=== PATIENT | male | born 1935 | race Caucasian/White ===

== ENCOUNTER 2016-06-27 20:25 | Emergency (ER) | payer MEDICARE, OTHER ==
[2016-06-27 16:41] LABS: BASOPHILS 0.2 %; BASOPHILS ABSOLUTE 0.02 10/3/uL (0.0-0.16); EOSINOPHILS 0.7 %; EOSINOPHILS ABSOLUTE 0.09 10/3/uL (0.0-0.53); ER CBC TAT 0 Hrs 07 Mins; HEMATOCRIT 41.2 % (40.0-51.0); HEMOGLOBIN 13.7 g/dL (13.6-17.8); IMMATURE GRANULOCYTES 0.3 %; IMMATURE GRANULOCYTES ABSOLUTE 0.04 10/3/uL (0.0-0.11); LYMPHOCYTES 3.7 %; LYMPHOCYTES ABSOLUTE 0.46 10/3/uL (0.67-4.30); MEAN CORPUS HGB CONC 33.3 g/dL (32.0-36.0); MEAN CORPUSCULAR HEMOGLOB 30.3 pg (26.0-34.0); MEAN PLATELET VOLUME 9.9 fL (9.2-13.0); MONOCYTES ABSOLUTE 0.99 10/3/uL (0.21-1.20); NEUTROPHILS 87.1 %; NEUTROPHILS ABSOLUTE 10.84 10/3/uL (2.02-8.40); PLATELET COUNT 244 10/3/uL (150-400); RBC DISTRIBUTION WIDTH 15.3 % (12.0-16.0); RED CELL COUNT 4.52 10/6/uL (4.7-6.1); WHITE BLOOD CELLS 12.4 10/3/uL (4.5-10.5)
[2016-06-27 16:42] LABS: MANUAL DIFF NO %; MEAN CORPUSCULAR VOLUME 91.2 fL (80-100)
[2016-06-27 16:51] LABS: A/G RATIO 0.9 (0.7-1.9); ALBUMIN 3.7 G/DL (3.5-5.0); CALCIUM, SERUM 9.9 MG/DL (8.5-10.4); CHLORIDE, SERUM 103 MMOL/L (96-112); CO2 (CARBON DIOXIDE) 32 MMOL/L (24-34); CREATININE 1.61 MG/DL (0.70-1.30); GFR AFRICAN AMERICAN 46 ML/MIN (>=60); GFR NON AFRICAN AMERICAN 40 ML/MIN (>=60); GLOBULIN 3.9 G/DL (2.5-4.1); GLUCOSE, SERUM 145 MG/DL (60-99); POTASSIUM, SERUM 3.5 MMOL/L (3.5-5.3); SGOT(AST) 20 U/L (5-40); SGPT(ALT) 39 U/L (5-65); SODIUM, SERUM 141 MMOL/L (135-148); TOTAL BILIRUBIN 0.6 MG/DL (0-1.2); TOTAL PROTEIN 7.6 G/DL (6.0-8.5)
[2016-06-27 16:54] LABS: ALKALINE PHOSPHATASE 109 U/L (45-117); BUN (BLOOD UREA NITROGEN) 23 MG/DL (6-23)
[~2016-06-27 20:25] MED LIST: CARDURA XL4 MG PO; DICLOFENAC; EFFEX75 PO; FISH OIL1200 MG PO; GLUCOSAMINE; HCTZ50B PO; LOTREL1 CA4 PO; MULTIVITAMI1 PO; SSKI1 GM/ML OR; TURMERIC; VITAMIN D31000 UNIT PO
[2016-06-29] MEDS ORDERED: T3 PO (14:26)
[2016-06-29] MEDS ORDERED: COREG6 PO (14:30)
[2016-06-29] MEDS ORDERED: CARTIA XT240 MG/24 PO (14:31)
[2016-06-29] MEDS ORDERED: ARICEPT10 PO (14:32)
[2016-06-29] MEDS ORDERED: ELIQUIS 5 MG TAB5 MG PO (14:33)
[2016-06-29] MEDS ORDERED: PEP20 PO (14:34)
[2016-06-29] MEDS ORDERED: L40 PO (14:35)
[2016-06-29] MEDS ORDERED: APRES10B PO (14:35)
[2016-06-29] MEDS ORDERED: DIABETA5 PO (14:35)
[2016-06-29] MEDS ORDERED: NAMENDA10 MG PO (14:36)
[2016-06-29] MEDS ORDERED: COZAAR100 MG PO (14:36)
[2016-06-29] MEDS ORDERED: ZAROX2.5B PO (14:37)
[2016-06-29] MEDS ORDERED: TRENTAL400 PO (14:39)
[2016-06-29] MEDS ORDERED: KLOR-CON M2020 MEQ PO (14:48)
[2016-06-29] MEDS ORDERED: P5 PO (14:51)
[2016-06-29] MEDS ORDERED: FLOMAX4 PO (14:53)
[2016-06-29] MEDS ORDERED: ADVAIR115P INH (14:53)
[2016-06-29] MEDS ORDERED: MAX25 PO (14:54)
[2016-06-29] MEDS ORDERED: ULORIC40 MG PO (14:56)
[2016-06-29] MEDS ORDERED: CENTRUM PO (14:57)
[2016-06-29] MEDS ORDERED: EFFEX75 PO (14:57)
[2016-06-29] MEDS ORDERED: GLUCCHONDR PO (14:58)
[2016-06-29] MEDS ORDERED: THERA TEARS PO (14:59)
[2016-06-29] MEDS ORDERED: PRESERVISION A1 EAC1 PO (14:59)
[2016-06-29] MEDS ORDERED: TUMERIC PO (15:00)
[2016-06-29] MEDS ORDERED: PROAIR HFA INH (15:10)
[2016-06-30] MEDS ORDERED: P20 PO (09:44)
[2016-08-22] MEDS ORDERED: T3 PO (15:31)
[2016-08-22] MEDS ORDERED: COREG6 PO (15:32)
[2016-08-22] MEDS ORDERED: CARTIA XT240 MG/24 PO (15:32)
[2016-08-22] MEDS ORDERED: ARICEPT10 PO (15:32)
[2016-08-22] MEDS ORDERED: L40 PO (15:33)
[2016-08-22] MEDS ORDERED: DIABETA5 PO (15:33)
[2016-08-22] MEDS ORDERED: APRES10B PO (15:33)
[2016-08-22] MEDS ORDERED: ELIQUIS 5 MG TAB5 MG PO (15:33)
[2016-08-22] MEDS ORDERED: NAMENDA10 MG PO (15:34)
[2016-08-22] MEDS ORDERED: COZAAR100 MG PO (15:34)
[2016-08-22] MEDS ORDERED: ZAROX2.5B PO (15:35)
[2016-08-22] MEDS ORDERED: ELOCON CREAM 0.15 GM TOP (15:35)
[2016-08-22] MEDS ORDERED: TRENTAL400 PO (15:36)
[2016-08-22] MEDS ORDERED: KLOR-CON M2020 MEQ PO (15:37)
[2016-08-22] MEDS ORDERED: P10 PO (15:37)
[2016-08-22] MEDS ORDERED: DYAZIDE1 CAP PO (15:39)
[2016-08-22] MEDS ORDERED: FLOMAX4 PO (15:39)
[2016-08-22] MEDS ORDERED: ULORIC80 MG PO (15:40)
[2016-08-22] MEDS ORDERED: EFFEX75 PO (15:40)
[2016-08-22] MEDS ORDERED: CENTRUM PO (15:41)
[2016-08-22] MEDS ORDERED: PRESERVISION A1 EAC1 PO (15:41)
[2016-08-22] MEDS ORDERED: GLUCCHONDR PO (15:41)
[2016-08-22] MEDS ORDERED: THERA TEARS PO (15:42)
[2016-08-22] MEDS ORDERED: TURMERIC PO (15:42)
[2016-08-22] MEDS ORDERED: ADVAIR250 INH (15:47)
[2016-09-16] MEDS ORDERED: T3 PO (18:34)
[2016-09-16] MEDS ORDERED: CARDCD240 PO (18:35)
[2016-09-16] MEDS ORDERED: ARICEPT10 PO (18:35)
[2016-09-16] MEDS ORDERED: ELIQUIS 5 MG TAB5 MG PO (18:35)
[2016-09-16] MEDS ORDERED: L40 PO (18:35)
[2016-09-16] MEDS ORDERED: NAMENDA10 MG PO (18:36)
[2016-09-16] MEDS ORDERED: APRES10B PO (18:36)
[2016-09-16] MEDS ORDERED: DIABETA5 PO (18:36)
[2016-09-16] MEDS ORDERED: COZAAR100 MG PO (18:36)
[2016-09-16] MEDS ORDERED: KDUR20 PO (18:37)
[2016-09-16] MEDS ORDERED: TRENTAL400 PO (18:37)
[2016-09-16] MEDS ORDERED: P10 PO (18:37)
[2016-09-16] MEDS ORDERED: FLOMAX4 PO (18:39)
[2016-09-16] MEDS ORDERED: ADVAIR INH (18:39)
[2016-09-16] MEDS ORDERED: EFFEX75 PO (18:40)
[2016-09-16] MEDS ORDERED: ULORIC80 MG PO (18:40)
[2016-09-16] MEDS ORDERED: PROMEGA PO (18:41)
[2016-09-16] MEDS ORDERED: CENTRUM PO (18:41)
[2016-09-16] MEDS ORDERED: GLUCCHONDR PO (18:41)
[2016-09-16] MEDS ORDERED: PRESERVISION A1 EAC1 PO (18:41)
[2016-09-16] MEDS ORDERED: DESITIN TOP (18:42)
[2016-09-16] MEDS ORDERED: THERA TEARS PO (18:43)
[2016-09-16] MEDS ORDERED: MONODOX100 MG PO (18:44)
[2016-09-16] MEDS ORDERED: TUMERIC PO (18:44)
[2016-09-16] MEDS ORDERED: SYSTANE OPH (18:45)
[2016-09-19] MEDS ORDERED: P20 PO (10:01)
[2016-09-19] MEDS ORDERED: MYCOLOG II CREA15 GM TOP (10:02)
[2016-09-19] MEDS ORDERED: BACTRIM DS1 TAB PO (10:03)
[2016-09-19] MEDS ORDERED: FLAG500TAB PO (10:03)
[2016-09-19] MEDS ORDERED: DUONEB INH (10:03)
[2016-10-03] MEDS ORDERED: APRES10B PO (10:40)
[2016-10-03] MEDS ORDERED: SYSTANE OPH (10:43)
[2016-10-03] MEDS ORDERED: P10 PO (10:44)
[2016-10-03] MEDS ORDERED: DESITIN TOP (10:47)
[2016-10-22] MEDS ORDERED: T3 PO (09:48)
[2016-10-22] MEDS ORDERED: NORV10 PO (09:49)
[2016-10-22] MEDS ORDERED: COMBIVENT RESPIM4 GM INH (09:49)
[2016-10-22] MEDS ORDERED: ELIQUIS 5 MG TAB5 MG PO (09:54)
[2016-10-22] MEDS ORDERED: CARDCD240 PO (09:54)
[2016-10-22] MEDS ORDERED: ARICEPT10 PO (09:54)
[2016-10-22] MEDS ORDERED: EFFEX75 PO (09:55)
[2016-10-22] MEDS ORDERED: ADVAIR INH (09:55)
[2016-10-22] MEDS ORDERED: DIABET2.5 PO (09:55)
[2016-10-22] MEDS ORDERED: MYCOLOG II CREA15 GM TOP (09:55)
[2016-10-22] MEDS ORDERED: CENTRUM PO (09:55)
[2016-10-22] MEDS ORDERED: TRENTAL400 PO (09:55)
[2016-10-22] MEDS ORDERED: COZAAR100 MG PO (09:55)
[2016-10-22] MEDS ORDERED: FLOMAX4 PO (09:55)
[2016-10-22] MEDS ORDERED: ULORIC80 MG PO (09:55)
[2016-10-22] MEDS ORDERED: GLUCCHONDR PO (09:55)
[2016-10-22] MEDS ORDERED: L40 PO (09:55)
[2016-10-22] MEDS ORDERED: PRESERVISION A1 EAC1 PO (09:55)
[2016-10-22] MEDS ORDERED: KDUR20 PO (09:55)
[2016-10-22] MEDS ORDERED: TUMERIC PO (09:55)
[2016-10-22] MEDS ORDERED: NAMENDA10 MG PO (09:55)
[2016-10-22] MEDS ORDERED: APRES50 PO (09:57)
[2016-10-22] MEDS ORDERED: P10 PO (09:58)
[2016-10-22] MEDS ORDERED: METPAKSF PO (10:00)
[2016-10-22] MEDS ORDERED: THERA TEARS PO (10:05)
[2016-10-27] MEDS ORDERED: DEMA20 PO (14:03)
[2016-10-27] MEDS ORDERED: P20 PO (14:24)
== END 2016-06-27 20:41 | disposition home or self-care (01) ==
LOC: ER 20:25
PROVIDERS: Emergency Medicine
DX: M10.9 Gout, unspecified (principal); I48.91 Unspecified atrial fibrillation; Z88.1 Allergy status to other antibiotic agents; Z88.8 Allergy status to other drugs, medicaments and biological substances; Z79.899 Other long term (current) drug therapy
CPT/HCPCS: 71020; 80053; 85025; 93005; 99285